=== PATIENT | male | born 1995 | race African-American/Black ===

== ENCOUNTER 2016-11-18 20:36 | Emergency (ER) | payer SELFPAY ==
[2016-11-18 21:33] VITALS: BP 127/61
[2016-11-18 22:02] LABS: BARBITURATES NEG (NEG); BENZODIAZEPINES NEG (NEG); CANNABINOIDS POS (NEG); COCAINE NEG (NEG); ETHANOL, URINE NEG (NEG); METHADONE NEG (NEG); OPIATES NEG (NEG); PHENCYCLIDINE NEG (NEG)
--- NOTE | 2016-11-18 22:24 | PHYS DOC ---
Past Medical History Past Medical History: No Pertinent History Past Surgical History: No Surgical History Additional Information: 11/11 ppd Alcohol Use: Rarely Drug Use: Marijuana Adult General Chief Complaint Chief Complaint: HEADACHE HPI HPI Patient is a 21 year old male presents to the emergency department stating that he had smoked some marijuana tonight when he developed shortness of air numbness and tingling down into his left arm as well as into his lower extremities. Patient states that he also has a headache on the left side of his head. Patient denies any visual difficulty. He denies any chest pain or discomfort. Patient states that he does not smoke marijuana daily. Patient states he's never had this reaction in the past. Patient states at the current time he just has a headache on the left side of his head. All other signs and symptoms have resolved. Review of Systems Review of Systems Constitutional: Denies fever or chills [] Eyes: Denies change in visual acuity, redness, or eye pain [] HENT: Denies nasal congestion or sore throat [] Respiratory: Denies cough or shortness of breath [] Cardiovascular: No additional information not addressed in HPI [ Musculoskeletal: Denies back pain or joint pain [] Integument: Denies rash or skin lesions [] Neurologic: headache, denies focal weakness or sensory changes [] Allergies Allergies Allergies Coded Allergies Type Severity Reaction Last Updated Verified No Known Drug Allergies 01/11/16 No Physical Exam Physical Exam Constitutional: Well developed, well nourished, no acute distress, non-toxic appearance. [] HENT: Normocephalic, atraumatic, bilateral external ears normal, oropharynx moist, no oral exudates, nose normal. Bilateral tympanic membranes appear to be normal throat appears to have erythematous with postnasal drip. Negative for frontal and maxillary sinus tenderness. Eyes: PERRLA, EOMI, conjunctiva normal, no discharge. [] Neck: Normal range of motion, no tenderness, supple, no stridor. [] Cardiovascular:Heart rate regular rhythm, no murmur [] Lungs & Thorax: Bilateral breath sounds clear to auscultation [] Skin: Warm, dry, no erythema, no rash. [] Back: No tenderness Extremities: No tenderness, no cyanosis, no clubbing, ROM intact, no edema. Peripheral pulses 2+ cap refill brisk less than 2 seconds patient was noted to have equal strength bilaterally. Neurologic: Alert and oriented X 3, normal motor function, normal sensory function, no focal deficits noted. [] Psychologic: Affect normal, judgement normal, mood normal. [] Current Patient Data Vital Signs Vital Signs Date Time Temp Pulse Resp B/P Pulse Ox O2 Delivery O2 Flow Rate FiO2 11/18/16 21:33 97.9 80 16 98 Room Air 97.9 Lab Values Laboratory Tests Test 11/18/16 21:50 Urine Opiates Screen Neg (NEG) Urine Methadone Screen Neg (NEG) Urine Barbiturates Neg (NEG) Urine Phencyclidine Screen Neg (NEG) Urine Amphetamine/Methamphetamine Neg (NEG) Urine Benzodiazepines Screen Neg (NEG) Urine Cocaine Screen Neg (NEG) Urine Cannabinoids Screen Pos (NEG) Urine Ethyl Alcohol Neg (NEG) EKG EKG EKG was completed at 29/11/[address] Cole as no STEMI. Patient does have some abnormality noted in the EKG. Heart rate was 81. Radiology/Procedures Radiology/Procedures [] Course & Med Decision Making Course & Med Decision Making Pertinent Labs and Imaging studies reviewed. (See chart for details) Patient's urine was positive for cancer [employer]. EKG was completed patient will be recommended to follow-up with data reduction technician in the next 4 days. Signs and symptoms to return back to emergency department as been provided. Patient be provided with Vistaril as well as ibuprofen here in the emergency department. He 'll be discharged home in stable condition with recommendations to avoid recreational drugs in the future. Patient agrees with discharge instructions treatment regimens and follow-up recommendations. [] Dragon Disclaimer Dragon Disclaimer This electronic medical record was generated, in whole or in part, using a voice recognition dictation system. Departure Departure Impression: Primary Impression: Anxiety Additional Impression: Headache Disposition: HOME, SELF-CARE Condition: STABLE Referrals: NO PCP (PCP) RUBEN DOE MD Patient Instructions: Anxiety and Panic Attacks, [id number], General Headache Without Cause Additional Instructions: Activity as tolerated. Tylenol or ibuprofen for pain and discomfort. Avoid any type or recreational drugs including marijuana, or methamphetamines. Follow-up with radiologist in the next 4 days. Return back to emergency percent symptoms become worse. Problem Qualifiers MARIE PHILLIP NP Nov 18, 2016 22:24
[2016-11-18] MEDS ORDERED: IBUPROFEN 800 MG TABLET. PO ONE (23:00)
[2016-11-18] MEDS ORDERED: HYDROXYZINE PAMOATE 25 MG CAPSULE PO ONE (23:00)
--- NOTE | 2016-11-19 06:12 | EKG ---
[facility] [address] [place] [address] Test Date: 2016-11-18 Test Time: 21:50:13 Pat Name: ESTER RODRIGUEZ Department: Room: Gender: M Funeral Service Manager: : 1995 Requested By: MARIE PHILLIP Order Number: [id number] Reading MD: Guy Bean Measurements Intervals [place] Rate: 81 P: 43 [place]: 164 QRS: 66 QRSD: 88 T: 39 QT: 362 QTc: 421 Interpretive Statements SINUS RHYTHM INCOMPLETE RIGHT BUNDLE BRANCH BLOCK Electronically Signed On 11-19-2016 15:47:53 SYSTEMS TECHNOLOGIST by Guy Bean
== END 2016-11-18 22:34 | disposition home or self-care (01) ==
LOC: ER 20:36
DX: R51 Headache (principal); F41.9 Anxiety disorder, unspecified; R20.0 Anesthesia of skin; F12.10 Cannabis abuse, uncomplicated
CPT/HCPCS: 93005; 99285; G0481

== ENCOUNTER 2016-11-20 09:29 | Emergency (ER) | payer SELFPAY ==
[~2016-11-20] VITALS: Ht 180.3 cm; Wt 70.3 kg
[2016-11-20] MEDS ORDERED: MAG HYDROX/AL HYDROX/SIMETH 30 ML ORAL.SUSP PO ONE (11:45)
[2016-11-20] MEDS ORDERED: ACETAMINOPHEN 325 MG TABLET. PO ONE (11:45)
[2016-11-20] MEDS ORDERED: ONDANSETRON ODT 4 MG TAB.RAPDIS PO ONE (11:45)
[2016-11-20] MEDS ORDERED: FAMOTIDINE 20 MG TABLET. PO ONE (11:45)
--- NOTE | 2016-11-20 12:00 | RAD ---
EXAM: Chest, 2 views. HISTORY: Chest pain. COMPARISON: None. FINDINGS: Frontal and lateral views of the chest are obtained. There is no infiltrate, effusion or pneumothorax. The heart is normal in size. There is hyperinflation likely due to inspiratory effort. IMPRESSION: No acute pulmonary finding.
[2016-11-20 12:14] LABS: NEGATIVE OBC STREP NEG; POSITIVE OBC STREP POS
[2016-11-20 12:23] VITALS: BP 118/69
--- NOTE | 2016-11-20 12:29 | EKG ---
[facility] [address] [place] [address] Test Date: 2016-11-20 Test Time: 11:39:03 Pat Name: ESTER RODRIGUEZ Department: Room: Gender: M Child Development Specialist: : 1995 Requested By: MOY ROSARIO Order Number: [id number] Reading MD: Guy Bean Measurements Intervals [place] Rate: 54 P: 41 [place]: 156 QRS: 46 QRSD: 84 T: 31 QT: 390 QTc: 371 Interpretive Statements SINUS RHYTHM Electronically Signed On 11-26-2016 11:26:58 COUNCILMAN by Guy Bean
[2016-11-20] MEDS ORDERED: FAMO-63 PO (12:37)
--- NOTE | 2016-11-20 12:39 | PHYS DOC ---
Past Medical History Past Medical History: Asthma Past Surgical History: No Surgical History Alcohol Use: None Drug Use: Marijuana Adult General Chief Complaint Chief Complaint: ABDOMINAL PAIN HPI HPI Patient is a 21 year old male who presents with complaint of abdominal pain. Patient states that his symptoms have been present for the past 2 days. Patient states that he has been having problems with stress and anxiety over the past week. Patient started getting "squeezing" pain in the upper portion of his abdomen that he rates currently as 6 out of 10. Patient states that he has had decreased appetite. Patient denies any nausea or vomiting. Patient states he took ibuprofen earlier today with no relief in symptoms. The patient denies any history of stomach problems. Patient has had subjective fever but no chills and denies diarrhea. The patient states that he has had mild radiation of pain up towards left side of his chest. Review of Systems Review of Systems Constitutional: Denies fever or chills [] Eyes: Denies change in visual acuity, redness, or eye pain [] HENT: Denies nasal congestion or sore throat [] Respiratory: Denies cough or shortness of breath [] Cardiovascular: Chest pain [] GI: Abdominal pain, anorexia, denies nausea, vomiting, bloody stools or diarrhea [] : Denies dysuria or hematuria [] Musculoskeletal: Denies back pain or joint pain [] Integument: Denies rash or skin lesions [] Neurologic: Denies headache, focal weakness or sensory changes [] Endocrine: Denies polyuria or polydipsia [] Current Medications Current Medications Current Medications Medications (Trade) Dose Ordered Sig/Brandi Start Time Stop Time Status Last Admin Dose Admin Acetaminophen (Tylenol) 650 mg 1X ONCE 11/20/16 11:45 11/20/16 11:46 DC 11/20/16 12:12 650 MG Al Hydroxide/Mg Hydroxide (Mylanta Plus Xs) 30 ml 1X ONCE 11/20/16 11:45 11/20/16 11:46 DC 11/20/16 12:11 30 ML Famotidine (Pepcid) 20 mg 1X ONCE 11/20/16 11:45 11/20/16 11:46 DC 11/20/16 12:12 20 MG Ondansetron HCl (Zofran Odt) 4 mg 1X ONCE 11/20/16 11:45 11/20/16 11:46 DC 11/20/16 12:12 4 MG Allergies Allergies Allergies Coded Allergies Type Severity Reaction Last Updated Verified No Known Drug Allergies 01/11/16 No Physical Exam Physical Exam Constitutional: Alert, afebrile, appears mildly ill. [] HENT: Normocephalic, atraumatic, bilateral external ears normal, oropharynx moist, no oral exudates, nose normal. [] Eyes: PERRLA, EOMI, conjunctiva normal, no discharge. [] Neck: Normal range of motion, no tenderness, supple, no stridor. [] Cardiovascular:Heart rate regular rhythm, no murmur [] Lungs & Thorax: Bilateral breath sounds clear to auscultation [] Abdomen: Bowel sounds normal, soft, no tenderness, no masses, no pulsatile masses. [] Skin: Warm, dry, no erythema, no rash. [] Back: No tenderness, no CVA tenderness. [] Extremities: No tenderness, no cyanosis, no clubbing, ROM intact, no edema. [] Neurologic: Alert and oriented X 3, normal motor function, normal sensory function, no focal deficits noted. [] Current Patient Data Vital Signs Vital Signs Date Time Temp Pulse Resp B/P Pulse Ox O2 Delivery O2 Flow Rate FiO2 11/20/16 10:20 97.8 60 18 116/68 98 Room Air 97.8 Lab Values Laboratory Tests Test 11/20/16 11:56 Group A Streptococcus Rapid Negative (NEGATIVE) EKG EKG Interpreted by me: Heart rate 54, sinus rhythm, normal intervals, incomplete right bundle branch block, J-point elevation, no acute ST elevation or depression [] Radiology/Procedures Radiology/Procedures [facility] [address] [place], [place] [id number] IMAGING REPORT Signed PATIENT: ESTER RODRIGUEZ ACCOUNT: [id number] : 1995 LOCATION: ER AGE: 21 SEX: M EXAM STATUS: REG ER ORD. PHYSICIAN: MOY ROSARIO MD REASON: L sided chest pain PROCEDURE: CHEST PA & LATERAL EXAM: Chest, 2 views. HISTORY: Chest pain. COMPARISON: None. FINDINGS: Frontal and lateral views of the chest are obtained. There is no infiltrate, effusion or pneumothorax. The heart is normal in size. There is hyperinflation likely due to inspiratory effort. IMPRESSION: No acute pulmonary finding. DICTATED and SIGNED BY: WALESKA URENA MD DATE: 11/20/16 1157 CC: MOY ROSARIO MD; NO PCP ~ [] Course & Med Decision Making Course & Med Decision Making Pertinent Labs and Imaging studies reviewed. (See chart for details) Patient was given Maalox, Pepcid, Zofran, Tylenol to help with symptoms. The patient's symptoms appear consistent with gastritis. Advised the patient follow- up in 2-3 days with his primary doctor for reevaluation and return to emergency department for any worsening symptoms. Patient voiced understanding and in agreement with treatment plan. Dragon Disclaimer Dragon Disclaimer This electronic medical record was generated, in whole or in part, using a voice recognition dictation system. Departure Departure Impression: Primary Impression: Gastritis Additional Impression: Anxiety Disposition: HOME, SELF-CARE Condition: IMPROVED Referrals: NO PCP (PCP) Patient Instructions: Gastritis, Adult Additional Instructions: Follow-up with your primary doctor in 2-3 days. Return to the emergency department for any worsening symptoms. Scripts Famotidine (Pepcid)20 Mg [id number] Mg PO BID #30 TAB Prov:MOY ROSARIO MD 11/20/16 Problem Qualifiers Primary Impression: Gastritis Gastritis type: unspecified gastritis Chronicity: acute Gastritis bleeding : without bleeding Qualified Code: K29.00 - Acute gastritis without bleeding MOY ROSARIO MD Nov 20, 2016 12:39
== END 2016-11-20 12:54 | disposition home or self-care (01) ==
LOC: ER 09:29
DX: K29.00 Acute gastritis without bleeding (principal); F41.9 Anxiety disorder, unspecified; J45.909 Unspecified asthma, uncomplicated; F12.10 Cannabis abuse, uncomplicated
CPT/HCPCS: 71020; 87070; 87880; 93005; 99284; Q0162

== ENCOUNTER 2016-12-06 23:48 | Emergency (ER) | payer SELFPAY ==
[~2016-12-06] VITALS: Ht 180.3 cm; Wt 70.3 kg
[~2016-12-06 23:48] MED LIST: FAMO-63 PO
[2016-12-07] MEDS ORDERED: HYDROXYZINE HCL 10 MG TABLET PO ONE (00:45)
[2016-12-07 00:48] VITALS: BP 119/68
[2016-12-07] MEDS ORDERED: HYDR25CA PO (00:50)
--- NOTE | 2016-12-07 00:50 | PHYS DOC ---
Past Medical History Past Medical History: Anxiety, Asthma Past Surgical History: No Surgical History Alcohol Use: None Drug Use: Marijuana Adult General Chief Complaint Chief Complaint: MULTIPLE COMPLAINTS HPI HPI Patient is a 21 year old male who presents with feeling anxious since trying to go to bed. His symptoms start with palpitations, headache, and then gets body tingling. He was trying to breath through his symptoms, but his girlfriend told him to come to the ED. He is feeling mostly better since being here. He states this has happened a few times recently and he is concerned about it becoming more frequent. He denies vision changes, dizziness, chest pain, dyspnea , numbness, weakness, abd pain, f/c, n/v. Review of Systems Review of Systems Constitutional: Denies fever or chills [] Eyes: Denies change in visual acuity, redness, or eye pain [] HENT: Denies nasal congestion or sore throat [] Respiratory: Denies cough or shortness of breath [] Cardiovascular: No additional information not addressed in HPI [] GI: Denies abdominal pain, nausea, vomiting, bloody stools or diarrhea [] : Denies dysuria or hematuria [] Musculoskeletal: Denies back pain or joint pain [] Integument: Denies rash or skin lesions [] Neurologic: Denies focal weakness or sensory changes [] Endocrine: Denies polyuria or polydipsia [] Current Medications Current Medications Current Medications Medications (Trade) Dose Ordered Sig/[facility] Start Time Stop Time Status Last Admin Dose Admin Hydroxyzine HCl (Atarax) 10 mg 1X ONCE 12/07/16 00:45 12/07/16 00:46 DC 12/07/16 00:46 10 MG Allergies Allergies Allergies Coded Allergies Type Severity Reaction Last Updated Verified No Known Drug Allergies 01/11/16 No Physical Exam Physical Exam Constitutional: Well developed, well nourished, no acute distress, non-toxic appearance. [] HENT: Normocephalic, atraumatic, bilateral external ears normal, oropharynx moist, no oral exudates, nose normal. [] Eyes: PERRLA, EOMI. [] Neck: Normal range of motion, supple. [] Cardiovascular:Heart rate regular rhythm [] Lungs & Thorax: Bilateral breath sounds clear to auscultation [] Abdomen: Bowel sounds normal, soft, no tenderness. [] Skin: Warm, dry, no erythema, no rash. [] Back: Normal ROM. [] Extremities: NROM intact, no edema. [] Neurologic: Alert and oriented X 3, normal motor function, normal sensory function, no focal deficits noted, cranial nerves II through XII intact. [] Psychologic: Affect normal, judgement normal, mood normal. [] Current Patient Data Vital Signs Vital Signs Date Time Temp Pulse Resp B/P Pulse Ox O2 Delivery O2 Flow Rate FiO2 12/07/16 00:48 64 20 119/68 99 Room Air 12/06/16 23:50 98.3 98.3 EKG EKG EKG as interpreted by me as normal sinus rhythm, rate 67, no ST-T changes, normal intervals, no ectopy Course & Med Decision Making Course & Med Decision Making Discussed to continue breathing exercises and he can take vistaril prn. Encouraged him to f/u with PCP or psychiatry. Return precautions given. He understands and agrees with plan. Dragon Disclaimer Dragon Disclaimer This electronic medical record was generated, in whole or in part, using a voice recognition dictation system. Departure Departure Impression: Primary Impression: Anxiety Disposition: HOME, SELF-CARE Condition: STABLE Referrals: NO PCP (PCP) Patient Instructions: Anxiety and Panic Attacks, [id number] Additional Instructions: Take Vistaril as needed for anxiety. Follow-up with your primary care doctor. Return for any concerns. Scripts Hydroxyzine Pamoate (Vistaril)25 Mg Capsule1 Cap PO TID PRN ANXIETY #30 CAP Ref 0 Prov:Herve TERESA MD 12/07/16 Herve TERESA MD Dec 07, 2016 00:50
--- NOTE | 2016-12-07 09:17 | EKG ---
[facility] [address] [place] [address] Test Date: 2016-12-07 Test Time: 00:36:01 Pat Name: ESTER RODRIGUEZ Department: Room: Gender: M Talent Engineer: : 1995 Requested By: Herve TERESA Order Number: [id number] Reading MD: Guy Bean Measurements Intervals [place] Rate: 67 P: 39 MA: 162 QRS: 46 QRSD: 96 T: 28 QT: 376 QTc: 400 Interpretive Statements SINUS RHYTHM NON-SPECIFIC ST/T CHANGES Electronically Signed On 12-09-2016 10:31:21 GUARD SERGEANT by Guy Bean
== END 2016-12-07 00:55 | disposition home or self-care (01) ==
LOC: ER 23:48
DX: F41.9 Anxiety disorder, unspecified (principal); J45.909 Unspecified asthma, uncomplicated; F12.10 Cannabis abuse, uncomplicated
CPT/HCPCS: 93005; 99283-25; 99284-25

== ENCOUNTER 2017-01-14 12:59 | Emergency (ER) | payer SELFPAY ==
[~2017-01-14] VITALS: Ht 180.3 cm; Wt 70.3 kg
[~2017-01-14 12:59] MED LIST changes: +HYDR25CA PO
[2017-01-14 14:16] VITALS: BP 104/58
[2017-01-14] MEDS ORDERED: PROAIR HFA8.5 GM INH (14:35)
--- NOTE | 2017-01-14 14:36 | PHYS DOC ---
Past Medical History Past Medical History: Anxiety, Asthma Past Surgical History: No Surgical History Alcohol Use: Occasionally Drug Use: Marijuana Adult General Chief Complaint Chief Complaint: FLU SYMPTOM HPI HPI Patient is a 22 year old male who presents with complaint of shortness of breath and wheezing. Patient states that he has history of asthma. Patient was diagnosed with influenza one month ago. Patient states that his cough and shortness of breath have not completely gone away since resolution of other symptoms. The patient states that he gets tightness and wheezing at nighttime when sleeping. Patient states that this improves during the daytime. Patient has not had any fevers. Patient does admit to congestion and mild sore throat. The patient does not have an albuterol inhaler at home and has not treated his symptoms with any other medications. Review of Systems Review of Systems Constitutional: Denies fever or chills [] Eyes: Denies change in visual acuity, redness, or eye pain [] HENT: Nasal congestion, sore throat [] Respiratory: Shortness of breath, wheezing [] Cardiovascular: Denies chest pain or edema [] GI: Denies abdominal pain, nausea, vomiting, bloody stools or diarrhea [] : Denies dysuria or hematuria [] Musculoskeletal: Denies back pain or joint pain [] Integument: Denies rash or skin lesions [] Neurologic: Denies headache, focal weakness or sensory changes [] Allergies Allergies Allergies Coded Allergies Type Severity Reaction Last Updated Verified No Known Drug Allergies 01/11/16 No Physical Exam Physical Exam Constitutional: Alert, afebrile, no acute distress. [] HENT: Normocephalic, atraumatic, bilateral external ears normal, oropharynx moist, bilateral tonsillar hypertrophy with mild erythema, no exudates, nose normal. [] Eyes: PERRLA, EOMI, conjunctiva normal, no discharge. [] Neck: Normal range of motion, no tenderness, supple, no stridor. [] Cardiovascular:Heart rate regular rhythm, no murmur [] Lungs & Thorax: Bilateral breath sounds clear to auscultation, non-restricted air movement bilaterally [] Abdomen: Bowel sounds normal, soft, no tenderness, no masses, no pulsatile masses. [] Skin: Warm, dry, no erythema, no rash. [] Back: No tenderness, no CVA tenderness. [] Extremities: No tenderness, no cyanosis, no clubbing, ROM intact, no edema. [] Neurologic: Alert and oriented X 3, normal motor function, normal sensory function, no focal deficits noted. [] Current Patient Data Vital Signs Vital Signs Date Time Temp Pulse Resp B/P Pulse Ox O2 Delivery O2 Flow Rate FiO2 01/14/17 13:23 98.3 61 18 119/83 100 Room Air 98.3 EKG EKG Not performed [] Radiology/Procedures Radiology/Procedures Not performed [] Course & Med Decision Making Course & Med Decision Making Pertinent Labs and Imaging studies reviewed. (See chart for details) Patient's lung sounds are clear to auscultation. The patient's symptoms may be triggered by allergens as this was explained to the patient. The patient had a negative strep test in the emergency department. Patient written for albuterol inhaler to use as needed for wheezing. Recommended use of daily antihistamine to help limit symptoms. Advise follow-up in 3-5 days a primary doctor and return to emergency department for any worsening symptoms. Patient voiced understanding and in agreement with treatment plan. Dragon Disclaimer Dragon Disclaimer This electronic medical record was generated, in whole or in part, using a voice recognition dictation system. Departure Departure Impression: Primary Impression: Asthma Disposition: 01 HOME, SELF-CARE Condition: IMPROVED Referrals: NO PCP (PCP) Patient Instructions: Asthma, Adult Additional Instructions: Follow-up with your primary doctor in 3-5 days. Return to emergency department for any worsening symptoms. Scripts Albuterol Sulfate (Proair Hfa Inhaler)8.5 Gm Hfa.aer.ad2 Puff INH Q4-6HRS PRN SHORTNESS OF BREATH #1 INHALER Ref 0 Prov:MOY ROSARIO MD 01/14/17 Problem Qualifiers Primary Impression: Asthma Asthma severity: mild intermittent Asthma complication type: uncomplicated Qualified Code: J45.20 - Mild intermittent asthma, uncomplicated MOY ROSARIO MD Jan 14, 2017 14:36
[2017-01-15 09:07] LABS: NEGATIVE OBC STREP NEG; POSITIVE OBC STREP POS
== END 2017-01-14 14:42 | disposition home or self-care (01) ==
LOC: ER 12:59
DX: J45.20 Mild intermittent asthma, uncomplicated (principal); F41.9 Anxiety disorder, unspecified; F12.10 Cannabis abuse, uncomplicated
CPT/HCPCS: 87070; 87880; 99283

== ENCOUNTER 2017-05-16 01:43 | Emergency (ER) | payer SELFPAY ==
[~2017-05-16 01:43] MED LIST changes: +PROAIR HFA8.5 GM INH
[2017-05-16 04:00] VITALS: BP 100/60
--- NOTE | 2017-05-16 07:21 | RAD ---
Right RIBS with chest, 05/16/2017: History: Rib pain No fracture or rib abnormality is detected. There is no evidence of underlying pneumothorax, hemothorax or pulmonary infiltrate. The heart size is normal. IMPRESSION: No significant right rib abnormality is detected.
--- NOTE | 2017-05-16 08:03 | ED.ADGEN ---
Past Medical History Past Medical History: No Pertinent History, Anxiety, Asthma Past Surgical History: No Surgical History Alcohol Use: Occasionally Drug Use: Marijuana Adult General Chief Complaint Chief Complaint: RIB PAIN HPI HPI Patient is a 22 year old with chronic intermittent chest wall pain who presents with right lateral chest wall pain at work this evening. Pain is worse with palpation, deep breathing and movement. Patient denies cough, sore throat and fever. Patient has been evaluated in the ED multiple times and has previously been in admitted for evaluation of his chest complaint. He has had echocardiogram which was normal. He has not follow-up with PCP. He does not take any routine pain medications. Patient does have history of asthma, but denies shortness of breath, or wheezing. No other symptoms or complaints. Review of Systems Review of Systems ROS as per HPI. Allergies Allergies Allergies Coded Allergies Type Severity Reaction Last Updated Verified shellfish derived Allergy Intermediate 02/27/17 No Physical Exam Physical Exam Constitutional: Well developed, well nourished, no acute distress, non-toxic appearance. HENT: Normocephalic, atraumatic, bilateral external ears normal, oropharynx moist, no oral exudates, nose normal. Eyes: PERRLA, EOMI, conjunctiva normal. Neck: Normal range of motion, no tenderness, supple, no stridor. Cardiovascular:Heart rate regular rhythm, no murmur. Lungs & Thorax: Bilateral breath sounds clear to auscultation. Right rib, chest wall pain, tenderness. Abdomen: Bowel sounds normal, soft, no tenderness. Skin: Warm, dry. Back: No tenderness. Extremities: No tenderness. Neurologic: Alert and oriented X 3, normal motor function, normal sensory function, no focal deficits noted. Psychologic: Affect normal, judgement normal, mood normal. Current Patient Data Vital Signs Vital Signs Date Time Temp Pulse Resp B/P (MAP) Pulse Ox O2 Delivery O2 Flow Rate FiO2 05/16/17 04:00 50 16 100/60 (73) 99 Room Air 05/16/17 02:00 98.3 98.3 EKG EKG [] Radiology/Procedures Radiology/Procedures [Right rib series: No acute abnormalities] Course & Med Decision Making Course & Med Decision Making Pertinent Labs and Imaging studies reviewed. (See chart for details) Reproducible pleuritic chest wall pain. Recommend supportive treatment with PCP follow-up.] Misty Disclaimer Dragon Disclaimer This electronic medical record was generated, in whole or in part, using a voice recognition dictation system. RODOLFO ALEXANDER DO May 16, 2017 08:03
== END 2017-05-16 04:30 | disposition home or self-care (01) ==
LOC: ER 01:43
DX: R07.89 Other chest pain (principal); J45.909 Unspecified asthma, uncomplicated; F41.9 Anxiety disorder, unspecified; F12.10 Cannabis abuse, uncomplicated; Z91.013 Allergy to seafood
CPT/HCPCS: 71101; 99284-25

== ENCOUNTER 2017-07-23 21:45 | Emergency (ER) | payer SELFPAY ==
[~2017-07-23] VITALS: Ht 180.3 cm; Wt 70.3 kg
[2017-07-23] MEDS ORDERED: DEXAMETHASONE SOD PHOS 4 MG/ML VIAL IV ONE (22:15)
[2017-07-23] MEDS ORDERED: IV NORMAL SALINE 1000ML BAG 1,000 ML IV SCH (22:15)
[2017-07-23] MEDS ORDERED: diphenhydrAMINE 50 MG/ML VIAL IV ONE (22:15)
[2017-07-23] MEDS ORDERED: FAMOTIDINE 20 MG/2 ML VIAL IVP ONE (22:15)
--- NOTE | 2017-07-23 22:32 | ED.ADGEN ---
Past Medical History Past Medical History: No Pertinent History, Anxiety, Asthma Past Surgical History: No Surgical History Alcohol Use: Occasionally Drug Use: Marijuana Adult General Chief Complaint Chief Complaint: ALLERGIC REACTION HPI HPI Patient is a 22 year old and, who presents to the emergency department with a complaint of an allergic reaction. Patient is a history of shellfish allergy ominous states that he ate a portion of prepared [place], which came in a mirror needed sauce. This occurred about an hour before his symptoms began, primarily throat itching and a feeling of throat tightness. Patient denies any hives, any nausea, any vomiting, any diarrhea, abdominal pain, any wheezing, any chest pain , any difficulty with breathing or swallowing. He states that when he was 9 years old he had a severe allergic reaction to shellfish, he has not had reactions that time. He does not have an EpiPen. He does not have any medications he takes on a regular basis. Denies any other ingestions or exposures, any other preceding symptoms. Review of Systems Review of Systems Constitutional: Denies fever or chills. [] Eyes: Denies change in visual acuity. [] HENT: Denies nasal congestion or sore throat. []"Throat itching". Respiratory: Denies cough or shortness of breath. [] Cardiovascular: Denies chest pain or edema. [] GI: Denies abdominal pain, nausea, vomiting, bloody stools or diarrhea. [] : Denies dysuria. [] Musculoskeletal: Denies back pain or joint pain. [] Integument: Denies rash. [] Neurologic: Denies headache, focal weakness or sensory changes. [] Endocrine: Denies polyuria or polydipsia. [] Lymphatic: Denies swollen glands. [] Psychiatric: Denies depression or anxiety. [] Current Medications Current Medications Current Medications Medications (Trade) Dose Ordered Sig/Brandi Start Time Stop Time Status Last Admin Dose Admin Dexamethasone Sodium Phosphate (Decadron) 10 mg 1X ONCE 07/23/17 22:15 07/23/17 22:16 DC 07/23/17 22:26 10 MG Diphenhydramine HCl (Benadryl) 50 mg 1X ONCE 07/23/17 22:15 07/23/17 22:16 DC 07/23/17 22:25 50 MG Famotidine (Pepcid) 20 mg 1X ONCE 07/23/17 22:15 07/23/17 22:16 DC 07/23/17 22:27 20 MG Sodium Chloride 1,000 ml @ 1,000 mls/hr Q1H 07/23/17 22:15 07/23/17 23:14 DC 07/23/17 22:34 1,000 MLS/HR Allergies Allergies Allergies Coded Allergies Type Severity Reaction Last Updated Verified shellfish derived Allergy Intermediate 02/27/17 No Physical Exam Physical Exam Constitutional: Well developed, well nourished, no acute distress, non-toxic appearance. [] HENT: Normocephalic, atraumatic, bilateral external ears normal, oropharynx moist, no oral exudates, nose normal. [] Eyes: PERRLA, EOMI, conjunctiva normal, no discharge. [] Neck: Normal range of motion, no tenderness, supple, no stridor. [] Cardiovascular:Heart rate regular rhythm, no murmur, S1, S2, no rubs or gallops. [] Lungs & Thorax: Bilateral breath sounds clear to auscultation, no wheezing, no rhonchi, rales. [] Abdomen: Bowel sounds normal, soft, no tenderness, no masses, no pulsatile masses. [] Skin: Warm, dry, no erythema, no rash. [] Back: No tenderness, no CVA tenderness. [] Extremities: No tenderness, no cyanosis, no clubbing, ROM intact, no edema. Negative Homans sign.[] Neurologic: Alert and oriented X 3, normal motor function, normal sensory function, no focal deficits noted. [] Psychologic: Affect normal, judgement normal, mood normal. [] Current Patient Data Vital Signs Vital Signs Date Time Temp Pulse Resp B/P (MAP) Pulse Ox O2 Delivery O2 Flow Rate FiO2 07/24/17 00:00 81 16 147/84 (105) 99 Room Air 07/23/17 21:52 98.6 98.6 EKG EKG ECG: Rhythm strip: Heart rate 68 beats/minute, sinus rhythm, no ectopy. As interpreted by me. Radiology/Procedures Radiology/Procedures Not indicated.[] Course & Med Decision Making Course & Med Decision Making Pertinent Labs and Imaging studies reviewed. (See chart for details) Patient well-appearing, no signs of airway compromise, systemic symptoms or cutaneous symptoms. Patient's significant other is now bedside, states that he did take some "allergy medication", which may have been generic type of Benadryl , prior to coming to the ED. Unclear the exact dosage or contents. Patient received Decadron, IV fluids, famotidine, and Benadryl in the emergency department. Is agreeable to these medications and observation in the ED. Patient observed in the emergency department for 3 hours, with administration of Benadryl, famotidine, and Decadron. IV fluids also given. On reevaluation, patient states that he is feeling much better, and THROAT symptoms have resolved. Patient did not develop any other concerning symptoms during his ED evaluation. I did discuss at length the patient importance of avoiding any seafood, or other products that may expose him to cross contamination. We also discussed use of it EpiPen autoinjector, patient was given a prescription for an epinephrine autoinjector to be carried with him at all times, also discuss utility of allergy testing in establishing a primary care provider. We discussed concerning symptoms that prompt return to the ED. Patient voiced understanding and agreement with plan and instructions as stated. Patient discharged home in stable condition with significant other with plan and precautions as above. Dragon Disclaimer Dragon Disclaimer This electronic medical record was generated, in whole or in part, using a voice recognition dictation system. Departure Impression: Primary Impression: Allergic reaction Disposition: 01 HOME, SELF-CARE Condition: IMPROVED Scripts Epinephrine (EPIPEN 2-THAD) 0.3 Mg/0.3 Ml Auto.injct 0.3 MG IJ PRN Y for ANAPHYLAXIS, #1 SYR 1 Refill Prov: FAMILIA LAZAR DO 07/24/17 FAMILIA LAZAR DO Jul 23, 2017 22:32
[2017-07-24 00:54] VITALS: BP 112/65
[2017-07-24] MEDS ORDERED: EPIPEN 2-P0.3 MG/0.3 IJ (01:16)
== END 2017-07-24 01:29 | disposition home or self-care (01) ==
LOC: ER 21:45
DX: J39.2 Other diseases of pharynx (principal); T78.1XXA Other adverse food reactions, not elsewhere classified, initial encounter; J45.909 Unspecified asthma, uncomplicated; F41.9 Anxiety disorder, unspecified; Z91.013 Allergy to seafood; X58.XXXA Exposure to other specified factors, initial encounter
CPT/HCPCS: 96361; 96374; 96375; 99284; J1100; J1200; J7030; S0028

== ENCOUNTER 2017-08-08 00:34 | Emergency (ER) | payer SELFPAY ==
[~2017-08-08] VITALS: Ht 180.3 cm; Wt 70.3 kg
[~2017-08-08 00:34] MED LIST changes: +EPIPEN 2-P0.3 MG/0.3 IJ
[2017-08-08 00:50] VITALS: BP 141/75
[2017-08-08 02:06] LABS: BASO % 0 % (0-3); EOS % 2 % (0-3); HEMATOCRIT 45.7 % (39.0-53.0); HEMOGLOBIN 15.2 g/dL (13.0-17.5); LYMPH # 1.8 x10^3/uL (1.0-4.8); LYMPH % 20 % (24-48); MEAN CORPUSCULAR HEMOGLOBIN 30 pg (25-35); MEAN CORPUSCULAR HGB CONC 33 g/dL (31-37); MEAN CORPUSCULAR VOLUME 89 fL (79-100); MONO % 5 % (0-9); NEUT % 72 % (31-73); PLATELET COUNT 239 x10^3/uL (140-400); RED BLOOD COUNT 5.11 x10^6/uL (4.30-5.70); RED CELL DISTRIBUTION WIDTH 13.6 % (11.5-14.5); WHITE BLOOD COUNT 8.6 x10^3/uL (4.0-11.0)
[2017-08-08 02:17] LABS: CALCIUM 8.9 mg/dL (8.5-10.1); CREATININE 1.1 mg/dL (0.7-1.3); GFR 99.5; POTASSIUM 3.6 mmol/L (3.5-5.1)
[2017-08-08 02:24] LABS: ALBUMIN 4.1 g/dL (3.4-5.0); ALBUMIN/GLOBULIN RATIO 1.4 (1.0-1.7); TOTAL BILIRUBIN 0.3 mg/dL (0.2-1.0)
--- NOTE | 2017-08-08 02:53 | PHYS DOC ---
Past Medical History Past Medical History: Anxiety, Asthma Past Surgical History: No Surgical History Alcohol Use: Occasionally Drug Use: Marijuana Adult General Chief Complaint Chief Complaint: CHEST PAIN HPI HPI Patient is a 22 year old male who presents with palpitations. The patient states a few hours prior to arrival he drank "a lot" of alcohol & smoked marijuana. Shortly thereafter he experienced sensation of racing heartbeat, chest tightness, & lightheadedness. Denies fevers/chills, cough, shortness of breath, nausea, diaphoresis, lower extremity pain/swelling. He is asymptomatic at time of my evaluation. Reports previous history of chest pain & was actually admitted here for workup, no significant cause identified. He has history of asthma & smokes cigarettes. He does not have a PCP. Denies family history of premature CAD, DVT/PE. Review of Systems Review of Systems Constitutional: Denies fever or chills Eyes: Denies change in visual acuity HENT: Denies nasal congestion or sore throat Respiratory: Denies cough or shortness of breath Cardiovascular: Reports chest pain & palpitations GI: Denies abdominal pain, nausea, vomiting, bloody stools or diarrhea : Denies dysuria or hematuria Musculoskeletal: Denies back pain or joint pain Integument: Denies rash or skin lesions Neurologic: Denies headache, focal weakness or sensory changes Allergies Allergies Allergies Coded Allergies Type Severity Reaction Last Updated Verified shellfish derived Allergy Intermediate 02/27/17 No Physical Exam Physical Exam Constitutional: Well developed, well nourished, no acute distress, non-toxic appearance. HENT: Normocephalic, atraumatic, bilateral external ears normal, oropharynx moist, nose normal. Eyes: conjunctiva injected bilaterally, no discharge. Neck: supple, no stridor. Cardiovascular: RRR, no murmurs, no edema. Lungs & Thorax: LCTAB, no wheezing, no respiratory distress. no reproducible tenderness with palpation over anterior chest wall. Abdomen: soft, nontender, nondistended. Skin: Warm, dry, no erythema, no rash. Back: No tenderness. Extremities: No tenderness, no edema. no calf pain or swelling. Neurologic: Alert and oriented X 3, no focal deficits noted. Psychologic: Affect normal, judgement normal, mood normal. Current Patient Data Vital Signs Vital Signs Date Time Temp Pulse Resp B/P (MAP) Pulse Ox O2 Delivery O2 Flow Rate FiO2 08/08/17 00:50 98.2 92 18 141/75 (97) 100 Room Air 98.2 Lab Values Laboratory Tests Test 08/08/17 01:45 White Blood Count 8.6 x10^3/uL (4.0-11.0) Red Blood Count 5.11 x10^6/uL (4.30-5.70) Hemoglobin 15.2 g/dL (13.0-17.5) Hematocrit 45.7 % (39.0-53.0) Mean Corpuscular Volume 89 fL (79-100) Mean Corpuscular Hemoglobin 30 pg (25-35) Mean Corpuscular Hemoglobin Concent 33 g/dL (31-37) Red Cell Distribution Width 13.6 % (11.5-14.5) Platelet Count 239 x10^3/uL (140-400) Neutrophils (%) (Auto) 72 % (31-73) Lymphocytes (%) (Auto) 20 % (24-48) L Monocytes (%) (Auto) 5 % (0-9) Eosinophils (%) (Auto) 2 % (0-3) Basophils (%) (Auto) 0 % (0-3) Neutrophils # (Auto) 6.2 x10^3uL (1.8-7.7) Lymphocytes # (Auto) 1.8 x10^3/uL (1.0-4.8) Monocytes # (Auto) 0.4 x10^3/uL (0.0-1.1) Eosinophils # (Auto) 0.2 x10^3/uL (0.0-0.7) Basophils # (Auto) 0.0 x10^3/uL (0.0-0.2) Sodium Level 140 mmol/L (136-145) Potassium Level 3.6 mmol/L (3.5-5.1) Chloride Level 102 mmol/L (98-107) Carbon Dioxide Level 29 mmol/L (21-32) Anion Gap 9 (6-14) Blood Urea Nitrogen 9 mg/dL (8-26) Creatinine 1.1 mg/dL (0.7-1.3) Estimated GFR (Cockcroft-Gault) 99.5 BUN/Creatinine Ratio 8 (6-20) Glucose Level 101 mg/dL (70-99) H Calcium Level 8.9 mg/dL (8.5-10.1) Total Bilirubin 0.3 mg/dL (0.2-1.0) Aspartate Amino Transferase (AST) 12 U/L (15-37) L Alanine Aminotransferase (ALT) 19 U/L (16-63) Alkaline Phosphatase 78 U/L (46-116) Troponin I Quantitative < 0.017 ng/mL (0.000-0.055) Total Protein 7.0 g/dL (6.4-8.2) Albumin 4.1 g/dL (3.4-5.0) Albumin/Globulin Ratio 1.4 (1.0-1.7) Lipase 122 U/L (73-393) Laboratory Tests 08/08/17 01:45 Laboratory Tests 08/08/17 01:45 EKG EKG interpreted by me: NSR rate 66, J point elevation, normal intervals, no ectopy. no significant change from 12/07/2016 Radiology/Procedures Radiology/Procedures CXR: interpreted by me: no cardiomegaly, no infiltrate, no pneumothorax, no acute process. patient's very thick dreadlock style hair appears to be projecting over the shoulders & upper chest.[] Course & Med Decision Making Course & Med Decision Making Pertinent Labs and Imaging studies reviewed. (See chart for details) The patient presents with palpitations. Heart rate in normal range with no evidence of arrhythmia on telemetry monitoring. EKG shows early repolarization which is similar to previous studies. Obtained labs & CXR. No significant abnormality & he remained asymptomatic. Patient requests discharge home. Recommend rest, hydration, tylenol/ibuprofen for pain, avoid abuse of drugs & alcohol, follow up with primary care in 2-3 days. Come back for severe chest pain or shortness of breath, or any otherwise worsening condition. DIscharged home in stable condition. [] Dragon Disclaimer Dragon Disclaimer This electronic medical record was generated, in whole or in part, using a voice recognition dictation system. Departure Departure Impression: Primary Impression: Chest pain Disposition: HOME, SELF-CARE Condition: STABLE Referrals: NO PCP (PCP) Enrique JIMENEZ MD Patient Instructions: Chest Pain (Nonspecific), [id number], Drug Abuse, FAQs Additional Instructions: You were seen in the emergency department today for chest pain. Your tests did not show a serious cause of symptoms. This could be related to drug & alcohol use. Avoid abusing drugs. Follow up with Dr. Jimenez or the primary care doctor of your choice in 2-3 days. Come back for severe chest pain or shortness of breath, fast or irregular heartbeat, any otherwise worsening condition. ISHAN JACKSON MD Aug 08, 2017 02:53
--- NOTE | 2017-08-08 07:20 | RAD ---
EXAM: Chest 2 views. HISTORY: Chest pain. COMPARISON: 05/16/2017. FINDINGS: Frontal and lateral views of the chest are obtained. There are no confluent infiltrates. There is no pneumothorax or pleural effusion. The heart is not enlarged. Densities superiorly on the patient's hair. IMPRESSION: 1. No confluent infiltrates.
--- NOTE | 2017-08-08 07:21 | EKG ---
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
== END 2017-08-08 03:15 | disposition home or self-care (01) ==
LOC: ER 00:34
DX: R07.89 Other chest pain (principal); R00.2 Palpitations; R42 Dizziness and giddiness; J45.909 Unspecified asthma, uncomplicated; F12.10 Cannabis abuse, uncomplicated; Z91.013 Allergy to seafood
CPT/HCPCS: 36415; 71020; 80053; 83690; 84484; 85025; 93005; 99285-25

== ENCOUNTER 2018-03-21 10:56 | Emergency (ER) | payer SELFPAY | END 2018-03-21 11:24 | disposition home or self-care (01) | LOC: ER 10:56 | DX: J02.9 Acute pharyngitis, unspecified (principal); J45.909 Unspecified asthma, uncomplicated; F12.10 Cannabis abuse, uncomplicated; Z91.013 Allergy to seafood | CPT/HCPCS: 99283 ==

== ENCOUNTER 2018-07-25 13:51 | Emergency (ER) | payer SELFPAY ==
[~2018-07-25] VITALS: Ht 162.6 cm; Wt 70.3 kg
[~2018-07-25 13:51] MED LIST changes: +AMOX1TAB61 PO; +PRED20TA PO
[2018-07-25 15:09] VITALS: BP 111/59
[2018-07-25] MEDS ORDERED: CEPH-264 PO (15:19)
--- NOTE | 2018-07-25 15:20 | PHYS DOC ---
Past Medical History Past Medical History: Anxiety, Asthma Past Surgical History: No Surgical History Alcohol Use: Occasionally Drug Use: Marijuana Adult General Chief Complaint Chief Complaint: SORE THROAT HPI HPI Patient is a 23 year old male who presents with a sore throat times one week. The patient states that he has had pus pockets noted to the back of his throat. He has been intermittently febrile at home. He denies nasal congestion or earache. The patient was treated for strep throat a few weeks ago with amoxicillin. Review of Systems Review of Systems Constitutional: Denies fever or chills [] Eyes: Denies change in visual acuity, redness, or eye pain [] HENT: See history of present illness Respiratory: Denies cough or shortness of breath [] Cardiovascular: No additional information not addressed in HPI [] GI: Denies abdominal pain, nausea, vomiting, bloody stools or diarrhea [] : Denies dysuria or hematuria [] Musculoskeletal: Denies back pain or joint pain [] Integument: Denies rash or skin lesions [] Neurologic: Denies headache, focal weakness or sensory changes [] Endocrine: Denies polyuria or polydipsia [] All other systems were reviewed and found to be within normal limits, except as documented in this note. Allergies Allergies Allergies Coded Allergies Type Severity Reaction Last Updated Verified shellfish derived Allergy Intermediate 02/27/17 No Physical Exam Physical Exam Constitutional: Well developed, well nourished, no acute distress, non-toxic appearance. [] HENT: Normocephalic, atraumatic, bilateral external ears normal, pharyngeal erythema with positive exudates, nose normal. [] Eyes: PERRLA, EOMI, conjunctiva normal, no discharge. [] Neck: Normal range of motion, positive anterior cervical adenopathy, supple, no stridor. [] Cardiovascular:Heart rate regular rhythm, no murmur [] Lungs & Thorax: Bilateral breath sounds clear to auscultation [] Abdomen: Bowel sounds normal, soft, no tenderness, no masses, no pulsatile masses. [] Skin: Warm, dry, no erythema, no rash. [] Back: No tenderness, no CVA tenderness. [] Extremities: No tenderness, no cyanosis, no clubbing, ROM intact, no edema. [] Neurologic: Alert and oriented X 3, normal motor function, normal sensory function, no focal deficits noted. [] Psychologic: Affect normal, judgement normal, mood normal. [] Current Patient Data Vital Signs Vital Signs Date Time Temp Pulse Resp B/P (MAP) Pulse Ox O2 Delivery O2 Flow Rate FiO2 07/25/18 15:09 98.2 59 18 111/59 (76) 97 Room Air 98.2 EKG EKG [] Radiology/Procedures Radiology/Procedures [] Course & Med Decision Making Course & Med Decision Making Pertinent Labs and Imaging studies reviewed. (See chart for details) [] Dragon Disclaimer Dragon Disclaimer This electronic medical record was generated, in whole or in part, using a voice recognition dictation system. Departure Departure Impression: Primary Impression: Pharyngitis Disposition: HOME, SELF-CARE Condition: STABLE Referrals: NO PCP (PCP) Patient Instructions: Viral and Bacterial Pharyngitis Additional Instructions: Take the medication as prescribed. You may use ibuprofen or Tylenol for pain or fever. You may use salt water gargles several times daily for comfort. Follow- up with your primary care provider in 3 days if not improving or return to the emergency department if worsening. Scripts Cephalexin (KEFLEX) 500 Mg Capsule 1 CAP PO TID, #30 CAP Prov: SHAY LITTLE APRN 07/25/18 SHAY LITTLE APRN Jul 25, 2018 15:20
== END 2018-07-25 15:28 | disposition home or self-care (01) ==
LOC: ER 13:51
DX: J02.9 Acute pharyngitis, unspecified (principal); F41.9 Anxiety disorder, unspecified; J45.909 Unspecified asthma, uncomplicated; Z91.013 Allergy to seafood
CPT/HCPCS: 99283

== ENCOUNTER 2018-09-13 03:23 | Emergency (ER) | payer SELFPAY ==
[~2018-09-13] VITALS: Ht 177.8 cm; Wt 72.6 kg
[~2018-09-13 03:23] MED LIST changes: +CEPH-264 PO
[2018-09-13 03:45] VITALS: BP 122/57
[2018-09-13] MEDS ORDERED: IPRATRPIUM/ALBUTEROL 0.5/2.5MG 3 ML NEBU. NEB ONE (04:00)
[2018-09-13] MEDS ORDERED: PROAIR HFA8.5 GM INH (04:46)
--- NOTE | 2018-09-13 05:33 | PHYS DOC ---
Past Medical History Past Medical History: Anxiety, Asthma Past Surgical History: No Surgical History Additional Information: 2 PPD Alcohol Use: Occasionally Drug Use: Marijuana Adult General Chief Complaint Chief Complaint: ASTHMA HPI HPI Patient is a 23 year old male presents the emergency room with shortness of breath and cough he thinks he has asthma. He knows in fact he has asthma he did not have an inhaler he says that he's had some sinus congestion that might be leading to these symptoms the symptoms are mild there is chest pain with deep breathing he says he has been coughing a fair amount. Review of Systems Review of Systems Constitutional: Denies fever or chills [] Eyes: Denies change in visual acuity, redness, or eye pain [] HENT: All other systems were reviewed and found to be within normal limits, except as documented in this note. Current Medications Current Medications Current Medications Medications (Trade) Dose Ordered Sig/Brandi Start Time Stop Time Status Last Admin Dose Admin Albuterol/ Ipratropium (Duoneb) 3 ml 1X ONCE 09/13/18 04:00 09/13/18 04:01 DC 09/13/18 04:15 3 ML Allergies Allergies Allergies Coded Allergies Type Severity Reaction Last Updated Verified shellfish derived Allergy Intermediate 02/27/17 No Physical Exam Physical Exam Constitutional: Well developed, well nourished, no acute distress, non-toxic appearance. [] HENT: Normocephalic, atraumatic, bilateral external ears normal, oropharynx moist, no oral exudates, nose normal. [] Eyes: PERRLA, EOMI, conjunctiva normal, no discharge. [] Neck: Normal range of motion, no tenderness, supple, no stridor. [] Cardiovascular:Heart rate regular rhythm, no murmur [] Lungs & Thorax: Faint wheezing bilaterally Abdomen: Bowel sounds normal, soft, no tenderness, no masses, no pulsatile masses. [] Skin: Warm, dry, no erythema, no rash. [] Extremities: No tenderness, no cyanosis, no clubbing, ROM intact, no edema. [] Neurologic: Alert and oriented X 3, normal motor function, normal sensory function, no focal deficits noted. [] Psychologic: Affect normal, judgement normal, mood normal. [] Current Patient Data Vital Signs Vital Signs Date Time Temp Pulse Resp B/P (MAP) Pulse Ox O2 Delivery O2 Flow Rate FiO2 11/4/18 04:14 99 Room Air 09/13/18 03:45 98.6 70 20 122/57 (78) 98.6 EKG EKG [] Radiology/Procedures Radiology/Procedures [] Course & Med Decision Making Course & Med Decision Making Pertinent Labs and Imaging studies reviewed. (See chart for details) []Chest x-ray interpreted by me was negative acute no pneumothorax was seen patient was given albuterol which cleared up the wheezing prescription for albuterol inhaler was provided. I talked her about prednisone but because he cleared up with one we decided not to do it. Return precautions were discussed and he voiced understanding Dragon Disclaimer Dragon Disclaimer This electronic medical record was generated, in whole or in part, using a voice recognition dictation system. Departure Departure Impression: Primary Impression: Asthma Disposition: 01 HOME, SELF-CARE Condition: STABLE Patient Instructions: Asthma, Adult Scripts Albuterol Sulfate (PROAIR HFA INHALER) 8.5 Gm Hfa.aer.ad 1 PUFF INH PRN Q6HRS PRN for SHORTNESS OF BREATH, #1 INHALER 0 Refills Prov: LENNY PIZANO MD 09/13/18 LENNY PIZANO MD Sep 13, 2018 05:33
--- NOTE | 2018-09-13 05:47 | RAD ---
PORTABLE CHEST 1V Clinical Indication: dyspnea; hx asthma Comparison: Two-view chest August 08, 2017. Findings: The cardiomediastinal silhouette is normal. Lungs are clear. There is no pneumothorax. No pleural effusion is appreciated. No acute bone abnormality. IMPRESSION: No acute cardiopulmonary process. Electronically signed by: Price Gomez MD (09/13/2018 5:43 AM) [facility]
== END 2018-09-13 05:51 | disposition home or self-care (01) ==
LOC: ER 03:23
DX: J45.909 Unspecified asthma, uncomplicated (principal); F41.9 Anxiety disorder, unspecified; F17.200 Nicotine dependence, unspecified, uncomplicated; Z91.013 Allergy to seafood
CPT/HCPCS: 71045; 94640; 99283; J7620

== ENCOUNTER 2018-12-12 11:53 | Emergency (ER) | payer SELFPAY ==
[~2018-12-12] VITALS: Ht 180.3 cm; Wt 72.6 kg
[~2018-12-12 11:53] MED LIST changes: +ALBU2.5V8 INH; -PROAIR HFA8.5 GM INH
[2018-12-12 11:55] VITALS: BP 136/58
--- NOTE | 2018-12-12 12:07 | PHYS DOC ---
Past Medical History Past Medical History: Anxiety, Asthma, STD (Gonorrhea) Past Surgical History: No Surgical History Alcohol Use: Occasionally Drug Use: Marijuana Adult General Chief Complaint Chief Complaint: PENIS PROBLEM HPI HPI Patient is a 23 year old male with history of gonorrhea who presents today complaining of painful bumps on his penis that began this morning at 2 AM. Patient states he had unprotected sex 2 weeks ago. Review of Systems Review of Systems Constitutional: Denies fever or chills [] GI: Denies abdominal pain, nausea, vomiting, bloody stools or diarrhea [] Male -reports painful bumps on his penis : Denies dysuria or hematuria [] Musculoskeletal: Denies back pain or joint pain [] Integument: Denies rash or skin lesions [] Neurologic: Denies headache, focal weakness or sensory changes [] All other systems were reviewed and found to be within normal limits, except as documented in this note. Current Medications Current Medications Current Medications Medications (Trade) Dose Ordered Sig/Brandi Start Time Stop Time Status Last Admin Dose Admin Azithromycin (Zithromax) 1,000 mg 1X ONCE 12/12/18 12:15 12/12/18 12:16 DC 12/12/18 12:19 1,000 MG Ceftriaxone Sodium (Rocephin Im) 250 mg 1X ONCE 12/12/18 12:15 12/12/18 12:16 DC 12/12/18 12:19 250 MG Metronidazole (Flagyl) 2,000 mg 1X ONCE 12/12/18 12:15 12/12/18 12:16 DC 12/12/18 12:19 2,000 MG Allergies Allergies Allergies Coded Allergies Type Severity Reaction Last Updated Verified shellfish derived Allergy Intermediate 02/27/17 No Physical Exam Physical Exam Constitutional: Well developed, well nourished, no acute distress, non-toxic appearance. [] Abdomen: Bowel sounds normal, soft, no tenderness, no masses, no pulsatile masses. [] Male : External penile shaft multiple grouped fluid filled lesions consistent with herpes Skin: Warm, dry, no erythema, no rash. [] Back: No tenderness, no CVA tenderness. [] Extremities: No tenderness, no cyanosis, no clubbing, ROM intact, no edema. [] Neurologic: Alert and oriented X 3, normal motor function, normal sensory function, no focal deficits noted. [] Psychologic: Affect normal, judgement normal, mood normal. [] Current Patient Data Vital Signs Vital Signs Date Time Temp Pulse Resp B/P (MAP) Pulse Ox O2 Delivery O2 Flow Rate FiO2 12/12/18 11:55 98.4 76 18 136/58 (84) 99 Room Air 98.4 Lab Values Laboratory Tests Test 12/12/18 12:00 Urine Collection Type Unknown Urine Color Yellow Urine Clarity Cloudy Urine pH 8.0 Urine Specific [place] 1.020 Urine Protein Negative mg/dL (NEG-TRACE) Urine Glucose (UA) Negative mg/dL (NEG) Urine Ketones (Stick) Negative mg/dL (NEG) Urine Blood Negative (NEG) Urine Nitrite Negative (NEG) Urine Bilirubin Negative (NEG) Urine Urobilinogen Dipstick 0.2 mg/dL (0.2 mg/dL) Urine Leukocyte Esterase Trace (NEG) Urine RBC 1-2 /HPF (0-2) Urine WBC 5-10 /HPF (0-4) Urine Squamous Epithelial Cells Few /LPF Urine Amorphous Sediment Present /HPF Urine Bacteria Few /HPF (0-FEW) Urine Mucus Marked /LPF EKG EKG [] Radiology/Procedures Radiology/Procedures [] Course & Med Decision Making Course & Med Decision Making Pertinent Labs and Imaging studies reviewed. (See chart for details) This is a 23-year-old male patient presenting to the ED today with complaints of bumps on his penis. On physical exam patient appears to have multiple grouped fluid filled lesions consistent with herpes, patient educated on the life long nature of the disease. Discharged on acyclovir. Also treated for STDs in the ED, was given Rocephin Flagyl and azithromycin. F/u with the health department. Dragon Disclaimer Dragon Disclaimer This electronic medical record was generated, in whole or in part, using a voice recognition dictation system. Departure Departure Impression: Primary Impression: Concern about STD in male without diagnosis Additional Impression: Herpes Disposition: 01 HOME, SELF-CARE Condition: STABLE Referrals: NO PCP (PCP) follow up with the health derpartment in 1-2 weeks Patient Instructions: Sexually Transmitted Disease Additional Instructions: You were evaluated for bumps on your penile suspicious of herpes. Take the prescribed medications as ordered. Tylenol/ Motrin for pain or fever. Do not have sex for 2 weeks. Use protection at all times when you resume sex. Contact all your sex partners and let them know you were seen in the emergency room for STDs and ask them to seek treatment too. Scripts Acyclovir (ACYCLOVIR) 800 Mg Tablet 1 TAB PO 5XDAY, #50 TAB Prov: MIAH BEATTY APRN 12/12/18 Problem Qualifiers MIAH BEATTY APRN Dec 12, 2018 12:07
[2018-12-12] MEDS ORDERED: cefTRIAXone IM 250 MG VIAL IM ONE (12:15)
[2018-12-12] MEDS ORDERED: metroNIDAZOLE 500 MG TABLET PO ONE (12:15)
[2018-12-12] MEDS ORDERED: AZITHROMYCIN 250 MG TABLET. PO ONE (12:15)
[2018-12-12 12:24] LABS: BILIRUBIN,URINE NEGATIVE (NEG); CLARITY,URINE CLOUDY; COLOR,URINE YELLOW; NITRITE,URINE NEGATIVE (NEG); PROTEIN,URINE NEGATIVE (NEG-TRACE); UROBILINOGEN,URINE 0.2 mg/dL (0.2 mg/dL)
[2018-12-12 12:30] LABS: SQUAMOUS EPITHELIAL CELL,UR FEW /LPF
[2018-12-12 12:31] LABS: AMORPHOUS SEDIMENT,UR PRESENT /HPF; BACTERIA,URINE FEW /HPF (0-FEW)
[2018-12-12] MEDS ORDERED: ACYC800T PO (12:36)
== END 2018-12-12 12:50 | disposition home or self-care (01) ==
LOC: ER 11:53
DX: A60.01 Herpesviral infection of penis (principal); Z20.2 Contact with and (suspected) exposure to infections with a predominantly sexual mode of transmission; F41.9 Anxiety disorder, unspecified; J45.909 Unspecified asthma, uncomplicated; Z91.013 Allergy to seafood
CPT/HCPCS: 81001; 96372; 99283; J0696; Q0144

== ENCOUNTER 2019-02-03 07:00 | Emergency (ER) | payer SELFPAY ==
[~2019-02-03] VITALS: Ht 177.8 cm; Wt 72.6 kg
[~2019-02-03 07:00] MED LIST changes: +ACYC800T PO
[2019-02-03 07:19] VITALS: BP 109/57
[2019-02-03] MEDS ORDERED: ALBU2.5V8 IH (07:27)
[2019-02-03] MEDS ORDERED: PRED20TA PO (07:27)
--- NOTE | 2019-02-03 07:28 | PHYS DOC ---
Past Medical History Past Medical History: Anxiety, Asthma, STD Past Surgical History: No Surgical History Alcohol Use: Occasionally Drug Use: Marijuana Adult General Chief Complaint Chief Complaint: ASTHMA HPI HPI 24-year-old smoker with a history of asthma presents with a 2-3 day history of cough and wheeze. He states he is out of his albuterol inhaler at home. He denies any fever chills or sweats. He states he does continue to smoke. He states his cough is nonproductive. He states he always has a flareup of his asthma during the pollen season.[] Review of Systems Review of Systems Constitutional: Denies fever or chills [] Eyes: Denies change in visual acuity, redness, or eye pain [] HENT: Denies nasal congestion or sore throat [] Respiratory: Per history of present illness[] Cardiovascular: No additional information not addressed in HPI [] GI: Denies abdominal pain, nausea, vomiting, bloody stools or diarrhea [] : Denies dysuria or hematuria [] Musculoskeletal: Denies back pain or joint pain [] Integument: Denies rash or skin lesions [] Neurologic: Denies headache, focal weakness or sensory changes [] Endocrine: Denies polyuria or polydipsia [] All other systems were reviewed and found to be within normal limits, except as documented in this note. Allergies Allergies Allergies Coded Allergies Type Severity Reaction Last Updated Verified shellfish derived Allergy Intermediate 02/27/17 No Physical Exam Physical Exam Constitutional: Well developed, well nourished, no acute distress, non-toxic appearance. [] HENT: Normocephalic, atraumatic, bilateral external ears normal, oropharynx moist, no oral exudates, nose normal. [] Eyes: PERRLA, EOMI, conjunctiva normal, no discharge. [] Neck: Normal range of motion, no tenderness, supple, no stridor. [] Cardiovascular:Heart rate regular rhythm, no murmur [] Lungs & Thorax: Mild scattered wheezes throughout both lungs greater than right[ ] Abdomen: Bowel sounds normal, soft, no tenderness, no masses, no pulsatile masses. [] Skin: Warm, dry, no erythema, no rash. [] Back: No tenderness, no CVA tenderness. [] Extremities: No tenderness, no cyanosis, no clubbing, ROM intact, no edema. [] Neurologic: Alert and oriented X 3, normal motor function, normal sensory function, no focal deficits noted. [] Psychologic: Affect normal, judgement normal, mood normal. [] EKG EKG [] Radiology/Procedures Radiology/Procedures [] Course & Med Decision Making Course & Med Decision Making Pertinent Labs and Imaging studies reviewed. (See chart for details) [] Dragon Disclaimer Dragon Disclaimer This electronic medical record was generated, in whole or in part, using a voice recognition dictation system. Departure Departure Impression: Primary Impression: Asthma Disposition: HOME, SELF-CARE Condition: STABLE Referrals: NO PCP (PCP) Patient Instructions: Asthma Attacks, Prevention, Asthma, Acute Bronchospasm Additional Instructions: Return to the emergency department with any new or concerning symptoms Scripts Prednisone (PREDNISONE) 20 Mg Tablet 3 TAB PO DAILY PRN for COUGH, #15 TAB Prov: DEVIKA PENA DO 02/03/19 Albuterol Sulfate (PROVENTIL HFA INHALER) 6.7 Gm Hfa.aer.ad 2 PUFF IH PRN Q4HRS PRN for FOR ASTHMA, #1 INHALER 6 Refills Prov: DEVIKA PENA DO 02/03/19 Problem Qualifiers Primary Impression: Asthma Asthma severity: mild Asthma persistence: intermittent Asthma complication type: with acute exacerbation Qualified Codes: J45.21 - Mild intermittent asthma with (acute) exacerbation DEVIKA PENA DO Feb 03, 2019 07:27
== END 2019-02-03 07:59 | disposition home or self-care (01) ==
LOC: ER 07:00
DX: J45.21 Mild intermittent asthma with (acute) exacerbation (principal); F41.9 Anxiety disorder, unspecified; F17.200 Nicotine dependence, unspecified, uncomplicated; Z91.013 Allergy to seafood
CPT/HCPCS: 99283

== ENCOUNTER 2020-03-17 07:20 | Emergency (ER) | payer SELFPAY ==
[~2020-03-17] VITALS: Ht 177.8 cm; Wt 77.0 kg
[~2020-03-17 07:20] MED LIST changes: +PROVENTIL HFA6.7 GM IH
[2020-03-17 07:27] VITALS: BP 125/61
[2020-03-17] MEDS ORDERED: KETOROLAC 60 MG/2 ML VIAL. IM ONE (07:30)
[2020-03-17] MEDS ORDERED: NAPR-514 PO (07:35)
--- NOTE | 2020-03-17 07:37 | PHYS DOC ---
Past Medical History Past Medical History: Anxiety, Asthma, STD Past Surgical History: No Surgical History Smoking Status: Current Every Day Smoker Alcohol Use: Occasionally Drug Use: None General Adult EDM: Chief Complaint: KNEE INJURY HPI: HPI: Patient is a 25-year-old otherwise healthy male who presents with a right knee injury. He states last week he was bouncing on a trampoline with his boys and injured his knee. He states he is tried rest, ice, compression and elevation with some reduction in the swelling. He states the pain and swelling was predominantly located on the inside of his right knee. He states last night his knee felt like it locked up. He is having difficulty straightening his knee and walking without discomfort. [] Review of Systems: Review of Systems: Constitutional: Denies fever or chills. [] Eyes: Denies change in visual acuity. [] HENT: Denies nasal congestion or sore throat. [] Respiratory: Denies cough or shortness of breath. [] Cardiovascular: Denies chest pain or edema. [] GI: Denies abdominal pain, nausea, vomiting, bloody stools or diarrhea. [] : Denies dysuria. [] Musculoskeletal: Per HPI [] Integument: Denies rash. [] Neurologic: Denies headache, focal weakness or sensory changes. [] Endocrine: Denies polyuria or polydipsia. [] Lymphatic: Denies swollen glands. [] Psychiatric: Denies depression or anxiety. [] Heart Score: Risk Factors: Risk Factors: DM, Current or recent (<one month) smoker, HTN, HLP, family history of CAD, obesity. Risk Scores: Score 0 - 3: 2.5% MACE over next 6 weeks - Discharge Home Score 4 - 6: 20.3% MACE over next 6 weeks - Admit for Clinical Observation Score 7 - 10: 72.7% MACE over next 6 weeks - Early Invasive Strategies Allergies: Allergies: Allergies Coded Allergies Type Severity Reaction Last Updated Verified shellfish derived Allergy Intermediate 02/27/17 No Physical Exam: PE: Constitutional: Well developed, well nourished, mild distress, non-toxic appearance. [] HENT: Normocephalic, atraumatic, bilateral external ears normal, oropharynx moist, no oral exudates, nose normal. [] Eyes: PERRLA, EOMI, conjunctiva normal, no discharge. [] Neck: Normal range of motion, no tenderness, supple, no stridor. [] Cardiovascular:Heart rate regular rhythm, no murmur [] Lungs & Thorax: Bilateral breath sounds clear to auscultation [] Abdomen: Bowel sounds normal, soft, no tenderness, no masses, no pulsatile masses. [] Skin: Warm, dry, no erythema, no rash. [] Back: No tenderness, no CVA tenderness. [] Extremities: Right knee is tender to palp in the medial aspect there is no significant swelling with forced valgus there is pain on the medial aspect of his knee however it does feel stable [] Neurologic: Alert and oriented X 3, normal motor function, normal sensory function, no focal deficits noted. [] Psychologic: Affect normal, judgement normal, mood normal. [] EKG: EKG: [] Radiology/Procedures: Radiology/Procedures: [] Course & Med Decision Making: Course & Med Decision Making Pertinent Labs and Imaging studies reviewed. (See chart for details) [] Dragon Disclaimer: Dragon Disclaimer: This electronic medical record was generated, in whole or in part, using a voice recognition dictation system. Departure Departure Impression: Primary Impression: Right knee sprain Qualified Codes: S83.411A - Sprain of medial collateral ligament of right knee, initial encounter Disposition: 01 HOME, SELF-CARE Condition: STABLE Referrals: NO PCP (PCP) LEÓN RIOS MD Follow with Dr. Rios in the next 1 to 2 weeks for further evaluation and possible MRI Patient Instructions: Combined Knee Ligament Sprain-SportsMed, Knee - Cartilage (Meniscus) Injury, Knee Replacement, Preparing For Scripts Naproxen (NAPROXEN) 500 Mg Tablet 1 TAB PO BID PRN for PAIN, #30 TAB 1 Refill Prov: DEVIKA PENA DO 03/17/20 DEVIKA PENA DO March 17, 2020 07:37
== END 2020-03-17 08:03 | disposition home or self-care (01) ==
LOC: ER 07:20
DX: S83.411A Sprain of medial collateral ligament of right knee, initial encounter (principal); J45.909 Unspecified asthma, uncomplicated; F17.200 Nicotine dependence, unspecified, uncomplicated; Z91.013 Allergy to seafood; W22.8XXA Striking against or struck by other objects, initial encounter; Y93.89 Activity, other specified; Y92.89 Other specified places as the place of occurrence of the external cause; Y99.8 Other external cause status
CPT/HCPCS: 96372; 99284; J1885

== ENCOUNTER → 2020-05-09 | Outpatient (CLI) | payer OTHER ==
[~2020-05-09] MED LIST changes: +NAPR-514 PO
--- NOTE | 2020-05-09 14:43 | KCIC ---
STUDY: MRI of the right knee without contrast INDICATION: Persistent knee pain. Swelling. COMPARISON: 05/01/2020 radiographs. TECHNIQUE: Multiplanar MR imaging of the right knee performed without the use of intravenous or intra-articular contrast. FINDINGS: Menisci: Intact medial and lateral menisci. Cruciate ligaments: Intact. Collateral ligaments: Intact. Tendons: Intact extensor mechanism. The additional tendons at the knee are unremarkable. Cartilage: Patellofemoral: High-grade chondrosis centered at the lateral margin of the patellar median ridge with fissuring and delamination traversing along the subchondral bone plate collectively extending in the craniocaudal dimension by 1 cm. The region of involvement measures up to 0.6 cm transverse. Associated subchondral edema. No high-grade chondrosis of the trochlea is identified. Lateral compartment: Intact. Medial compartment: Intact. Bones: TT-TT TG distance is within normal limits. High riding patella but this may be physiologic given near complete extension of the knee. No acute fracture or aggressive marrow signal abnormality. Miscellaneous: No significant knee joint effusion. Mild edema at the superolateral aspect of Hoffa's fat, image 16 series 5. IMPRESSION: 1. High-grade chondrosis centered along the lateral margin of the patella median ridge to include full-thickness fissuring and a delamination traversing along the subchondral bone plate. The region of involvement measures approximately 1 x 0.6 cm. Mild associated subchondral marrow edema. 2. High riding patella but it is difficult to confirm patella kt given the degree of knee extension during the exam. Though the TT-TG distance is normal, there is mild edema at the superolateral aspect of Hoffa's fat which can be seen in the setting of patellar maltracking. Recommend correlation with patient symptomatology. 3. Intact menisci and cruciate/collateral ligaments. Electronically signed by: JC BROOKS MD (05/09/2020 2:41 PM) [place] [id number]
== END ==
LOC: KCIC MRI 08:32
PROVIDERS: ATTEND Orthopaedic Surgery
DX: R60.0 Localized edema (principal)
CPT/HCPCS: 73721

== ENCOUNTER 2021-10-25 08:45 | Emergency (ER) | payer SELFPAY ==
[~2021-10-25] VITALS: Ht 177.8 cm; Wt 75.0 kg
[~2021-10-25 08:45] MED LIST changes: -ACYC800T PO; +ACYC800T88 PO
[2021-10-25] MEDS ORDERED: IBUP-1007 PO (09:40)
[2021-10-25] MEDS ORDERED: CYCL10TA19 PO (09:40)
--- NOTE | 2021-10-25 09:40 | PHYS DOC ---
Past Medical History Past Medical History: Asthma (MARIE HAINES [employer]) Past Surgical History: No Surgical History ([facility] [employer]) Smoking Status: Never Smoker Alcohol Use: None Drug Use: None ([facility] [employer]) General Adult EDM: Chief Complaint: NECK PAIN HPI: HPI: Patient is a 26 year old male who presents with 3 days of right-sided neck tightness that goes into the shoulder with a sharp shooting pain that at times will go down his back. He has been taking ibuprofen and Tylenol but it is not helping much. He states that he does play video games for quite some time and he is always leaning to the right side while he is playing. He denies fever, nausea, vomiting, diarrhea, chest pain, shortness of air, recent illness, numbness or tingling, focal weakness. Rates his discomfort at a 9 out of 10. Only other history is asthma. ([employer]IE [employer]ES [employer]) Review of Systems: Review of Systems: Constitutional: Denies fever or chills. [] Eyes: Denies change in visual acuity. [] HENT: Denies nasal congestion or sore throat. [] Respiratory: Denies cough or shortness of breath. [] Cardiovascular: Denies chest pain or edema. [] GI: Denies abdominal pain, nausea, vomiting, bloody stools or diarrhea. [] : Denies dysuria. [] Musculoskeletal: + back pain or denies joint pain. + Right-sided neck pain [] Integument: Denies rash. [] Neurologic: Denies headache, focal weakness or sensory changes. [] Endocrine: Denies polyuria or polydipsia. [] Lymphatic: Denies swollen glands. [] Psychiatric: Denies depression or anxiety. [] ([employer]IE [employer]ES [employer]) Heart Score: C/O Chest Pain: No ([facility] [employer]) Allergies: Allergies: Allergies Coded Allergies Type Severity Reaction Last Updated Verified shellfish derived Allergy Intermediate 10/25/21 No ([facility] [employer]) Physical Exam: PE: Constitutional: Well developed, well nourished, no acute distress, non-toxic appearance. [] HENT: Normocephalic, atraumatic, bilateral external ears normal, oropharynx moist, no oral exudates, nose normal. [] Eyes: PERRLA, EOMI, conjunctiva normal, no discharge. [] Neck: Slightly limited range of motion, no tenderness, supple, no stridor. No nuchal rigidity [] Cardiovascular:Heart rate regular rhythm, no murmur [] Lungs & Thorax: Bilateral breath sounds clear to auscultation [] Abdomen: Bowel sounds normal, soft, no tenderness, no masses, no pulsatile masses. [] Skin: Warm, dry, no erythema, no rash. [] Back: No tenderness, no CVA tenderness. [] Extremities: No tenderness, no cyanosis, no clubbing, ROM intact, no edema. [] Neurologic: Alert and oriented X 3, normal motor function, normal sensory function, no focal deficits noted. [] Psychologic: Affect normal, judgement normal, mood normal. [] (MARIE HAINES APRN) Current Patient Data: Vital Signs: Vital Signs Date Time Temp Pulse Resp B/P (MAP) Pulse Ox O2 Delivery O2 Flow Rate FiO2 10/25/21 08:50 98.1 55 14 124/68 (86) 99 Room Air 98.1 (MARIE HAINES APRN) EKG: EKG: [] (MARIE HAINES APRN) Radiology/Procedures: Radiology/Procedures: [] (MARIE HAINES APRN) Course & Med Decision Making: Course & Med Decision Making Pertinent Labs and Imaging studies reviewed. (See chart for details) See HPI. Alert and oriented x4. Ambulatory steady gait. Speaks in full clear sentences. Moving all extremities equally with equal strength. No extremity edema. No nuchal rigidity. Slightly limited range of motion of neck due to right-sided neck tightness that goes into right trapezius and slightly down the mid part of the upper back. Skin pink warm and dry. Afebrile. [] (MARIE HAINES APRN) Dragon Disclaimer: Dragon Disclaimer: This electronic medical record was generated, in whole or in part, using a voice recognition dictation system. (MARIE HAINES APRN) Departure Departure Impression: Primary Impression: Neck pain Disposition: HOME / SELF CARE / HOMELESS Condition: STABLE Referrals: NO PCP (PCP) Patient Instructions: Torticollis, Acute Additional Instructions: Follow-up with primary care provider if needed. Take medication as prescribed and with food. Member medications can make you sleepy so do not drive or drink any alcohol or do any other drugs on top of them. Drink plenty of fluids. If you begin running a fever or symptoms worsen return to the ED. Also try using a heating pad or ice. Scripts Cyclobenzaprine Hcl (CYCLOBENZAPRINE HCL) 10 Mg Tablet 1 TAB PO TID, #15 TAB Prov: MARIE HAINES APRN 10/25/21 Ibuprofen (IBUPROFEN) 600 Mg Tablet 600 MG PO PRN Q6HRS PRN for INFLAMMATION, #26 TAB Prov: MARIE HAINES APRN 10/25/21 Attending Signature I have participated in the care of this patient and I have reviewed and agree with all pertinent clinical information above including history, exam, and recommendations. (DMITRY HORAN DO) MARIE HAINES APRN Oct 25, 2021 09:40 DMITRY HORAN DO Oct 25, 2021 10:20
[2021-10-25] MEDS ORDERED: IBUPROFEN 400 MG TABLET. PO ONE (09:45)
[2021-10-25 09:52] VITALS: BP 118/74
== END 2021-10-25 09:54 | disposition home or self-care (01) ==
LOC: ER 08:45
DX: M54.2 Cervicalgia (principal); J45.909 Unspecified asthma, uncomplicated; Z91.013 Allergy to seafood
CPT/HCPCS: 99283

== ENCOUNTER 2022-03-12 21:05 | Emergency (ER) | payer SELFPAY ==
[~2022-03-12] VITALS: Ht 177.8 cm; Wt 73.2 kg
[~2022-03-12 21:05] MED LIST changes: +CYCL10TA19 PO; +IBUP-1007 PO
[2022-03-12 21:09] VITALS: BP 151/78
[2022-03-12] MEDS ORDERED: cefTRIAXone IM 500 MG VIAL. IM ONE (21:15)
[2022-03-12] MEDS ORDERED: DOXY100C3 PO (21:23)
--- NOTE | 2022-03-12 21:27 | PHYS DOC ---
Past Medical History Past Medical History: Asthma Past Surgical History: No Surgical History Smoking Status: Never Smoker Alcohol Use: None Drug Use: None General Adult EDM: Chief Complaint: SEXUALLY TRANSMITTED DISEASE HPI: HPI: 27-year-old male presents with 1 week history of dysuria. Reports today noted s ome whitish discharge. Patient reports he is sexually active. Concern for possible sexually transmitted disease. Denies any fever or chills. Denies trauma. Reports some difficulty in starting his stream. Denies testicular pain. Reports he is circumcised. Review of Systems: Review of Systems: Constitutional: Denies fever or chills Eyes: Denies redness or eye pain HENT: Denies nasal congestion or sore throat Respiratory: Denies cough or shortness of breath Cardiovascular: Denies chest pain or palpitations GI: Denies abdominal pain, nausea, or vomiting : Denies hematuria; reports dysuria and penile discharge Musculoskeletal: Denies back pain or joint pain Integument: Denies rash or skin lesions Neurologic: Denies headache, focal weakness or sensory changes Complete systems were reviewed and found to be within normal limits, except as documented in this note. Heart Score: C/O Chest Pain: N/A Current Medications: Current Medications Medications (Trade) Dose Ordered Sig/Brandi Start Time Stop Time Status Last Admin Dose Admin Ceftriaxone Sodium (Rocephin Im) 500 mg 1X ONCE 03/12/22 21:15 03/12/22 21:16 DC Allergies: Allergies: Allergies Coded Allergies Type Severity Reaction Last Updated Verified shellfish derived Allergy Intermediate 10/25/21 No Physical Exam: PE: Constitutional: Well developed, well nourished, no acute distress, non-toxic appearance HENT: Normocephalic, atraumatic Eyes: Conjunctiva normal, no discharge Neck: Normal range of motion, supple Lungs & Thorax: No respiratory distress, equal chest rise and fall Abdomen: Soft, no tenderness : Normal circumcised external genitalia, white discharge noted at penile os, no testicular swelling or pain on palpation, cremasteric reflex intact Skin: Warm, dry, no erythema, no rash Back: No tenderness, no CVA tenderness Extremities: No tenderness, ROM intact, no edema Neurologic: Alert and oriented X 3, no focal deficits noted Psychologic: Affect normal, judgment normal Current Patient Data: Vital Signs: Vital Signs Date Time Temp Pulse Resp B/P (MAP) Pulse Ox O2 Delivery O2 Flow Rate FiO2 03/12/22 21:09 98.4 90 18 151/78 (102) 99 Room Air 98.4 EKG: EKG: [] Radiology/Procedures: Radiology/Procedures: [] Course & Med Decision Making: Course & Med Decision Making Pertinent Lab studies reviewed. (See chart for details) Nontoxic patient presents with dysuria with concern for possible STD. UA obtained. Urine chlamydia/gonorrhea cultures pending. Empiric antibiotic initiated. Patient stable for discharge with outpatient follow-up with PCP. Discussed findings and plan with patient, who acknowledges understanding and agreement. Dragon Disclaimer: [place] Disclaimer: This electronic medical record was generated, in whole or in part, using a voice recognition dictation system. Departure Departure Impression: Primary Impression: Dysuria Additional Impression: Concern about STD in male without diagnosis Disposition: HOME / SELF CARE / HOMELESS Condition: STABLE Referrals: NO PCP (PCP) Patient Instructions: Dysuria, Sexually Transmitted Disease, [id number] Scripts Doxycycline Hyclate (DOXYCYCLINE HYCLATE) 100 Mg Capsule 1 CAP PO BID for 7 Days, #14 CAP Prov: BRENT PATEL DO 03/12/22 BRENT PATEL DO March 12, 2022 21:27
[2022-03-12 21:38] LABS: BACTERIA,URINE FEW /HPF (0-FEW); WBC,URINE 20-40 /HPF (0-4)
[2022-03-12] MEDS ORDERED: LIDOCAINE 1% PF 2 ML VIAL. ONE (21:48)
== END 2022-03-12 21:59 | disposition home or self-care (01) ==
LOC: ER 21:05
DX: R30.0 Dysuria (principal); Z20.2 Contact with and (suspected) exposure to infections with a predominantly sexual mode of transmission; J45.909 Unspecified asthma, uncomplicated; Z91.013 Allergy to seafood
CPT/HCPCS: 81001; 87086; 87491; 87591; 96372; 99283; J0696